=== PATIENT | female | born 1990 | race Caucasian/White ===

== ENCOUNTER 2023-01-02 12:04 | Emergency (ER) | payer OTHER ==
[~2023-01-02] VITALS: Ht 154.9 cm; Wt 59.9 kg
[2023-01-02 12:21] VITALS: BP 127/84; PULSE 74; RESP 16; TEMP 97.4; O2SAT 99
[2023-01-02 12:35] VITALS: BP 127/84; PULSE 74; RESP 16; TEMP 97.4
[2023-01-02 12:40] VITALS: O2SAT 99
[2023-01-02 13:02] LABS: APPEARANCE,URINE CLEAR (CLEAR); BILIRUBIN,URINE NEGATIVE (NEGATIVE); BLOOD, URINE NEGATIVE (NEGATIVE); COLOR,URINE YELLOW (YELLOW); LEUKOCYTE ESTERASE ,URINE NEGATIVE (NEGATIVE); NITRITE, URINE NEGATIVE (NEGATIVE); PROTEIN,URINE NEGATIVE (NEGATIVE); UGLUCOSE NEGATIVE (NEGATIVE); UROBILINOGEN,URINE 0.2 EU/dL (0.2 - 1)
[2023-01-02 13:23] LABS: BASOPHILS % (AUTO) 0.5 % (0.0-2.0); EOSINOPHILS # (AUTO) 0.1 K/uL (0-0.4); EOSINOPHILS % (AUTO) 1.1 % (0.0-4.0); HEMATOCRIT 35.6 % (36-48); LYMPHOCYTES % (AUTO) 13.6 % (20.5-51.1); MEAN CORPUSCULAR HEMOGLOBIN 33 pg (27-31); MEAN CORPUSCULAR HGB CONC 34 g/dL (33-37); MONOCYTES # (AUTO) 0.6 K/uL (0.8-1.0); NEUTROPHILS # (AUTO) 5.8 K/uL (1.8-7.7); NEUTROPHILS % (AUTO) 76.8 % (42.2-75.2); PLATELET COUNT (AUTO) 345 K/uL (140-450); RED BLOOD CELL COUNT(AUTO) 3.67 MIL/uL (4.20-5.40); RED CELL DISTRIBUTION WIDTH 12.8 % (11.6-13.7); WHITE BLOOD COUNT (AUTO) 7.5 K/uL (4.8-10.8)
[2023-01-02 13:38] LABS: ANION GAP 13.4 (8-16); CALCIUM 8.5 mg/dL (8.5-10.1); CARBON DIOXIDE 24.2 mmol/L (21-32); CREATININE 0.5 mg/dL (0.6-1.3); POTASSIUM 3.6 mmol/L (3.5-5.1)
== END 2023-01-02 14:56 | disposition home or self-care (01) ==
LOC: MED 12:04
DX: O02.1 Missed abortion (principal); Z3A.11 11 weeks gestation of pregnancy
CPT/HCPCS: 36415; 76801; 80048; 81003; 81025; 84702; 85025; 86900; 86901; 99284; Q0092

== ENCOUNTER 2023-09-21 17:35 | Observation (INO) | payer OTHER ==
[~2023-09-21] VITALS: Ht 154.9 cm; Wt 65.8 kg
[2023-09-21] MEDS ORDERED: PREN-543 PO (18:29)
[2023-09-21] MEDS ORDERED: LACTATED RINGERS 500 ML IV ONE (18:30)
[2023-09-21 18:35] VITALS: BP 94/56; PULSE 75; RESP 18; TEMP 98.3
[2023-09-21] MEDS: LACTATED RINGERS 1,000 ML IV SCH (18:57)
[2023-09-21] MEDS: ONDANSETRON 4 MG/2 ML VIAL IVP PRN (19:04)
== END 2023-09-21 22:25 | disposition home or self-care (01) ==
LOC: MLD 17:35
PROVIDERS: ADMIT Obstetrics & Gynecology; ATTEND Obstetrics & Gynecology
DX: O21.2 Late vomiting of pregnancy (principal); O26.892 Other specified pregnancy related conditions, second trimester; R42 Dizziness and giddiness; Z3A.24 24 weeks gestation of pregnancy
CPT/HCPCS: 96361; 96374; G0378; J2405; J7120; 81000